=== PATIENT | female | born 1945 | race Asian ===

== ENCOUNTER → 2020-12-26 | Outpatient (CLI) | payer MEDICARE, MEDICAID ==
[~2020-12-26] MED LIST: ACET325T26 PO; ALPR0.254 PO; AMLO-211 PO; AZIT500T10 PO; BENZ-17 PO; CEFD300C37 PO; CITA20TA9 PO; DOCU100C33 PO; DOXY100C2 PO; FURO-93 PO; GUAI600T31 PO; HYDR-826 PO; INSU100I11 SQ-INSULIN; INSU100I13 SQ-INSULIN; LABE200T6 PO; LACT10SO24 PO; MELA5TAB14 PO; REGADENOSON 0.4 MG/5 ML SYRINGE ONE; TERA5CAP3 PO; hum
== END | disposition home or self-care (01) ==
LOC: CFH 06:56
PROVIDERS: ATTEND Internal Medicine Cardiovascular Disease
DX: I08.3 Combined rheumatic disorders of mitral, aortic and tricuspid valves (principal); I11.9 Hypertensive heart disease without heart failure; I25.10 Atherosclerotic heart disease of native coronary artery without angina pectoris
CPT/HCPCS: 78452; 93017; 93306; A9502; J2785

== ENCOUNTER 2021-03-15 18:11 | Inpatient (IN) | payer MEDICARE, MEDICAID ==
[~2021-03-15] VITALS: Ht 160 cm; Wt 59.0 kg
[~2021-03-15 18:11] MED LIST changes: -REGADENOSON 0.4 MG/5 ML SYRINGE ONE; +SILD20TA PO
--- NOTE | 2021-03-15 18:40 | NUR ---
PT HAS BEEN FEELING WEAK AND NOTED DECREASE IN HR IN 30'S WHEN CHECKING HER VITALS. PT IS INSULIN DEPENDENT AND BLOOD SUGAR IN THE 400'S. PT ARRIVED TO ER FEELING DIZZY AND FAINT. PACER PADS PLACED AND PT ON MONITOR WITH IV ESTABLISHED.
[2021-03-15 18:52] LABS: BASOPHILS % (AUTO) 2 % (0-1); EOSINOPHILS % (AUTO) 6 % (1-7); LYMPHOCYTES % (AUTO) 14 % (22-44); MEAN CORPUSCULAR HEMOGLOBIN 27.9 pg (27.0-34.8); MEAN PLATELET VOLUME 8.3 fL (7.4-10.4); MONOCYTES % (AUTO) 8 % (2-9); NEUTROPHILS % (AUTO) 70 % (42-75); PLATELET COUNT 202 x10^3/uL (130-400); RED BLOOD COUNT 3.39 x10^6/uL (3.82-5.3); RED CELL DISTRIBUTION WIDTH 16.2 % (9.6-15.2)
[2021-03-15 18:53] LABS: MD NO
--- NOTE | 2021-03-15 18:56 | NUR ---
REPORT TO ИРИНА CHARLES.
[2021-03-15 19:00] LABS: ALANINE AMINOTRANSFERASE 18 U/L (12-78); ALBUMIN 4.1 g/dL (3.4-5.0); ANION GAP 9 mmol/L (5-15); CALCIUM 8.4 mg/dL (8.5-10.1); CHLORIDE 97 mmol/L (98-107); CREATININE 3.78 mg/dL (0.55-1.02)
[2021-03-15] MEDS ORDERED: OMEP-110 PO (19:02)
[2021-03-15 19:04] LABS: ALKALINE PHOSPHATASE 60 U/L (45-117); BILIRUBIN,TOTAL 0.3 mg/dL (0.2-1.0); TOTAL PROTEIN 7.7 g/dL (6.4-8.2); TROPONIN I < 0.015 ng/mL (0.000-0.045)
--- NOTE | 2021-03-15 19:09 | NUR ---
REPORT FROM ANGELIQUE CHARLES. 2ND PIV PLACED. DAUGHTER AT BEDSIDE. PT IN NAD. PT ON PACER PADS. HR MAINTAINING IN 40'S. PT HAS NO NEEDS AT THIS TIME. CALL LIGHT IN REACH
[2021-03-15 19:17] LABS: ACETONE, SERUM Negative (Negative)
--- NOTE | 2021-03-15 19:35 | NUR ---
RESULTS BACK. TO REEVALUATE
--- NOTE | 2021-03-15 20:07 | NUR ---
PT TO BE ADMITTED. PT RESTING. EVEN RESPIRATIONS OBSERVED. PT IN NAD. VSS. DAUGHTER AT BEDSIDE
--- NOTE | 2021-03-15 21:22 | NUR ---
PT RESTING WAITING FOR BED ASSIGNMENT.
[2021-03-15 22:29] VITALS: BP 154/62
[2021-03-15] MEDS ORDERED: ACETAMINOPHEN 325 MG TABLET PO PRN (22:30)
[2021-03-15] MEDS ORDERED: hydrALAzine 20 MG/ML, 1ML IVPush PRN (22:30)
[2021-03-15] MEDS ORDERED: MELATONIN 5 MG TABLET PO PRN (22:30)
[2021-03-15] MEDS ORDERED: ONDANSETRON 2MG/ML, 2ML IVPush PRN (22:30)
[2021-03-15] MEDS: INSULIN GLARGINE 100 UNITS/ML, PEN SQ-INSULIN SCH (23:48)
[2021-03-15] MEDS: SILDENAFIL 20 MG TABLET PO SCH (23:50)
[2021-03-15] MEDS: CITALOPRAM 20 MG TABLET PO SCH (23:50)
[2021-03-15] MEDS: TERAZOSIN 5MG CAPSULE PO SCH (23:50)
[2021-03-15] MEDS: HEPARIN 5,000 UNITS/ML, 1ML SQ SCH (23:54)
[2021-03-16 00:30] VITALS: BP 148/66
[2021-03-16] MEDS: FUROSEMIDE 20 MG TABLET PO SCH ×2 (00:48→09:00)
[2021-03-16 05:24] LABS: BASOPHILS % (AUTO) 2 % (0-1); EOSINOPHILS % (AUTO) 7 % (1-7); LYMPHOCYTES % (AUTO) 17 % (22-44); MEAN CORPUSCULAR HEMOGLOBIN 28.1 pg (27.0-34.8); MEAN CORPUSCULAR HGB CONC 33.6 g/dL (32.4-35.8); MEAN PLATELET VOLUME 7.9 fL (7.4-10.4); MONOCYTES % (AUTO) 9 % (2-9); NEUTROPHILS % (AUTO) 66 % (42-75); PLATELET COUNT 167 x10^3/uL (130-400); RED BLOOD COUNT 3.17 x10^6/uL (3.82-5.3)
[2021-03-16 05:28] LABS: MD NO
[2021-03-16 05:33] LABS: ANION GAP 7 mmol/L (5-15); CALCIUM 8.4 mg/dL (8.5-10.1); CHLORIDE 99 mmol/L (98-107)
[2021-03-16 05:39] LABS: CHOL/HDL RATIO 3.7; CHOLESTEROL, TOTAL 173 mg/dL (140-239); CREATININE 3.52 mg/dL (0.55-1.02); HDL CHOL % 27 % (28-40); HDL CHOLESTEROL (DIRECT) 47 mg/dL (40-60); LDL CHOLESTEROL,CALCULATED 91 mg/dL (54-169); LDL/HDL RATIO 1.9 (0.5-3.0); TRIGLYCERIDES 174 mg/dL (50-200); VLDL CHOLESTEROL 35 mg/dL (0-25)
[2021-03-16] MEDS: HEPARIN 5,000 UNITS/ML, 1ML SQ SCH ×3 (06:31→22:48)
[2021-03-16] MEDS: SILDENAFIL 20 MG TABLET PO SCH ×3 (06:31→22:48)
[2021-03-16 08:00] VITALS: BP 142/58
[2021-03-16] MEDS: OMEPRAZOLE 20 MG CAPSULE.DR PO SCH (08:58)
[2021-03-16] MEDS: DOCUSATE 100 MG CAPSULE PO SCH ×2 (08:58→20:31)
[2021-03-16] MEDS: INSULIN GLARGINE 100 UNITS/ML, PEN SQ-INSULIN SCH ×2 (09:00→20:58)
[2021-03-16] MEDS ORDERED: AMLODIPINE 10 MG TAB PO SCH (09:00)
[2021-03-16 14:00] VITALS: BP 153/58
[2021-03-16] MEDS: INSULIN LISPRO 100 UNITS/ML, PEN SQ-INSULIN SCH ×2 (18:09→20:55)
[2021-03-16 19:41] VITALS: BP 153/63
[2021-03-16] MEDS: TERAZOSIN 5MG CAPSULE PO SCH (20:31)
[2021-03-16] MEDS: CITALOPRAM 20 MG TABLET PO SCH (20:31)
[2021-03-17 02:48] VITALS: BP 132/62
[2021-03-17 05:01] LABS: ALBUMIN 3.6 g/dL (3.4-5.0); ANION GAP 7 mmol/L (5-15); CALCIUM 8.2 mg/dL (8.5-10.1); CHLORIDE 103 mmol/L (98-107); CREATININE 2.96 mg/dL (0.55-1.02)
[2021-03-17] MEDS: HEPARIN 5,000 UNITS/ML, 1ML SQ SCH (06:11)
[2021-03-17] MEDS: SILDENAFIL 20 MG TABLET PO SCH (06:11)
[2021-03-17] MEDS: INSULIN LISPRO 100 UNITS/ML, PEN SQ-INSULIN SCH ×2 (07:00→12:27)
[2021-03-17] MEDS ORDERED: GLUCAGON 1 MG IM PRN (08:00)
[2021-03-17] MEDS ORDERED: DEXTROSE 50%, 50ML SYRINGE IVPush PRN (08:00)
[2021-03-17] MEDS ORDERED: DEXTROSE 4 GM TAB.CHEW PO PRN (08:00)
[2021-03-17] MEDS: DOCUSATE 100 MG CAPSULE PO SCH (08:08)
[2021-03-17] MEDS: OMEPRAZOLE 20 MG CAPSULE.DR PO SCH (08:08)
[2021-03-17] MEDS: FUROSEMIDE 20 MG TABLET PO SCH (08:09)
[2021-03-17 08:22] VITALS: BP 158/63
[2021-03-17] MEDS ORDERED: SODIUM CHLORIDE FLUSH 10ML SYR IVF SCH (09:00)
[2021-03-17] MEDS: INSULIN GLARGINE 100 UNITS/ML, PEN SQ-INSULIN SCH (09:00)
[2021-03-17] MEDS ORDERED: FURO20TA3 PO (13:23)
[2021-03-17] MEDS ORDERED: FUROSEMIDE 20 MG TABLET PO SCH (17:00)
== END 2021-03-17 14:52 | disposition home or self-care (01) | DRG 291 ==
LOC: ED 21:04 → EDIP 21:20 → 5SO 22:26 → DCLOUNGE 03-17 14:29
PROVIDERS: ADMIT Family Medicine; ATTEND Family Medicine
DX: I13.2 Hypertensive heart and chronic kidney disease with heart failure and with stage 5 chronic kidney disease, or end stage renal disease (principal); J96.21 Acute and chronic respiratory failure with hypoxia; N18.6 End stage renal disease; I50.33 Acute on chronic diastolic (congestive) heart failure; N25.81 Secondary hyperparathyroidism of renal origin; E87.1 Hypo-osmolality and hyponatremia; D64.9 Anemia, unspecified; E11.22 Type 2 diabetes mellitus with diabetic chronic kidney disease; E86.1 Hypovolemia; R00.1 Bradycardia, unspecified; F41.9 Anxiety disorder, unspecified; I27.20 Pulmonary hypertension, unspecified; I48.91 Unspecified atrial fibrillation; Z79.4 Long term (current) use of insulin; Z99.81 Dependence on supplemental oxygen
CPT/HCPCS: 36415; 71045; 71250; 80048; 80053; 80061; 80069; 82010; 82803; 82962; 83735; 83880; 84100; 84443; 84484; 85025; 93005; 93306; G0378; J1644; J1815

== ENCOUNTER → 2021-04-03 | Outpatient (CLI) | payer MEDICARE, MEDICAID ==
[~2021-04-03] MED LIST changes: +FURO20TA3 PO; +OMEP-110 PO
== END | disposition home or self-care (01) ==
LOC: CFH 08:07
PROVIDERS: ATTEND Internal Medicine
DX: D17.79 Benign lipomatous neoplasm of other sites (principal); R91.8 Other nonspecific abnormal finding of lung field
CPT/HCPCS: 71250